=== PATIENT | female | born 1945 | race Caucasian/White ===

== ENCOUNTER 2017-11-28 17:05 | Emergency (ER) | payer OTHER ==
[~2017-11-28] VITALS: Ht 154.9 cm; Wt 79.0 kg
[~2017-11-28 17:05] MED LIST: AVELOX400 MG PO; CELEXA20 MG PO; DOXYCYCL HYC100 MG PO; NO HOME MEDS; OS-CAL 500500 M1 PO; PREDNISONE20 MG PO; TUSSIONEX1 ML OR
[2017-11-28] MEDS ORDERED: HIGH BLOOD PRESSURE (17:55)
[2017-11-28] MEDS ORDERED: DEPRESSION (17:56)
[2017-11-28 18:11] LABS: HEMATOCRIT 39.6 % (37.0-47.0); HEMOGLOBIN 13.3 g/dl (12.0-16.0); IMMATURE GRANULOCYTES 0.3 % (0.0-1.0); MEAN CELL VOLUME 86.7 fL CALC (80.0-100.0); MEAN CORPUSCULAR HGB 29.1 pG CALC (26.0-32.0); MEAN CORPUSCULAR HGB CONC 33.6 g/L CALC (32.0-36.0); NEUT# 5.92 thou/uL (2.00-7.15); RED BLOOD COUNT 4.57 mill/uL (4.20-5.60); RED CELL DISTRI WIDTH 13.2 % (11.5-15.5)
[2017-11-28 18:35] LABS: ALBUMIN 4.4 g/dL (3.2-5.0); ALKALINE PHOSPHATASE 90 u/l (38-126); ANION GAP 17 (6-22 (CALC)); BUN 17 mg/dL (8-23); BUN/CREATININE RATIO 17 (12-20 (CALC)); CARBON DIOXIDE 23 mmol/l (22-30); CHLORIDE 103 mmol/l (95-108); GFR 55 ML/MIN (>=60 (CALC)); GFR FOR AFR.AMER. > 60 ML/MIN (>=60 (CALC)); LIPASE 137 u/l (23-300); POTASSIUM 4.3 mmol/l (3.5-5.1); SGOT/AST 26 u/l (9-36); SGPT/ALT 25 u/l (11-66); SODIUM 139 mmol/l (137-146)
[2017-11-28 18:41] LABS: URINE BILIRUBIN - DIPSTICK NEGATIVE (NEGATIVE); URINE BLOOD DIPSTICK NEGATIVE (NEGATIVE); URINE COLOR YELLOW; URINE GLUCOSE - DIPSTICK NEGATIVE (NEGATIVE); URINE KETONE NEGATIVE (NEGATIVE); URINE NITRITE - DIPSTICK NEGATIVE (Negative); URINE PROTEIN - DIPSTICK NEGATIVE (NEG-TRACE)
[2017-11-28 18:41] LABS: BILIRUBIN, TOTAL 1.3 mg/dL (0.0-1.4)
[2017-11-28 18:43] LABS: URINE CLARITY CLEAR; URINE LEUK ESTERASE SMALL (NEGATIVE)
[2017-11-28 18:49] LABS: INFLUENZA A POSITIVE (NONE DETECT); INFLUENZA B NONE DETECTED (NONE DETECT)
[2017-11-28 18:51] LABS: URINE RBC 0-2 RBC/hpf (0-5); URINE SQUAMOUS EPITHELIAL CELL FEW EPI/hpf (0-FEW)
[2017-11-28] MEDS ORDERED: TAM75CAP PO (18:54)
[2017-11-28 18:59] VITALS: BP 105/53
== END 2017-11-28 19:05 | disposition home or self-care (01) | DRG 195 ==
LOC: ED 17:05
PROVIDERS: Family Medicine
DX: J10.1 Influenza due to other identified influenza virus with other respiratory manifestations (principal); R50.9 Fever, unspecified; M54.5 Low back pain; R11.0 Nausea; R51 Headache

== ENCOUNTER 2017-12-02 11:30 | Emergency (ER) | payer OTHER ==
[~2017-12-02] VITALS: Ht 154.9 cm; Wt 81.8 kg
[~2017-12-02 11:30] MED LIST changes: +DEPRESSION; +HIGH BLOOD PRESSURE; +TAM75CAP PO
[2017-12-02 12:47] LABS: HEMATOCRIT 37.4 % (37.0-47.0); HEMOGLOBIN 12.5 g/dl (12.0-16.0); IMMATURE GRANULOCYTES 0.7 % (0.0-1.0); MEAN CORPUSCULAR HGB 28.4 pG CALC (26.0-32.0); MEAN CORPUSCULAR HGB CONC 33.4 g/L CALC (32.0-36.0); NEUT# 5.22 thou/uL (2.00-7.15); RED BLOOD COUNT 4.4 mill/uL (4.20-5.60); RED CELL DISTRI WIDTH 13.2 % (11.5-15.5)
[2017-12-02 13:00] LABS: ALKALINE PHOSPHATASE 97 u/l (38-126); ANION GAP 17 (6-22 (CALC)); BUN 12 mg/dL (8-23); BUN/CREATININE RATIO 13 (12-20 (CALC)); CARBON DIOXIDE 23 mmol/l (22-30); CHLORIDE 98 mmol/l (95-108); GFR 55 ML/MIN (>=60 (CALC)); GFR FOR AFR.AMER. > 60 ML/MIN (>=60 (CALC)); POTASSIUM 4.1 mmol/l (3.5-5.1); SGOT/AST 44 u/l (9-36); SGPT/ALT 38 u/l (11-66); SODIUM 133 mmol/l (137-146); TOTAL PROTEIN 7.1 g/dL (6.3-8.2)
[2017-12-02 13:20] VITALS: BP 123/69
[2017-12-02] MEDS ORDERED: AMOXICILLIN500 MG PO (13:20)
[2017-12-02] MEDS ORDERED: ZOFRAN ODT4 MG PO (13:20)
== END 2017-12-02 13:20 | disposition home or self-care (01) | DRG 153 ==
LOC: ED 11:30
PROVIDERS: Emergency Medicine
DX: J02.0 Streptococcal pharyngitis (principal); F32.9 Major depressive disorder, single episode, unspecified; I10 Essential (primary) hypertension

== ENCOUNTER 2019-12-07 10:56 | Emergency (ER) | payer OTHER ==
[~2019-12-07 10:56] MED LIST changes: +AMOXICILLIN500 MG PO; +ZOFRAN ODT4 MG PO
[2019-12-07] MEDS ORDERED: AMOX/K CLAV875 M1 PO (11:47)
[2019-12-07 11:58] VITALS: BP 135/76
== END 2019-12-07 11:58 | disposition home or self-care (01) | DRG 153 ==
LOC: ED 10:56
DX: J32.9 Chronic sinusitis, unspecified (principal); I10 Essential (primary) hypertension